=== PATIENT | female | born 1990 | race Caucasian/White ===

== ENCOUNTER 2023-06-10 01:41 | Day surgery (SDC) | payer OTHER, SELFPAY ==
[2023-06-03 17:11] VITALS: BMI 32.2
--- NOTE | 2023-06-03 17:22 | PC.NURSE ---
Report to the Outpatient Waiting Room, entrance under the green pavilion located off [facility], at time 08:00am on date 06-10-23. Planned Procedure Time: 10:00am. Time changes happen often and if your time is changed the preop area will call you the afternoon before. - You and your visitor will be asked to self-screen and do not enter if you have any COVID symptoms. - A mask is optional within the hospital at this time. Patients may have clear liquids (water, carbonated beverages, clear teas, apple juice) until 3 hours prior to surgery (7:00am) with a maximum of 20 ounces. - No food from midnight until time of surgery Take the following medications with a SIP of water the morning of surgery: buspirone, sertraline, trazodone DO NOT STOP ANY OF YOUR OTHER PRESCRIPTION MEDICATIONS PRIOR TO SURGERY ?EXCEPT THE FOLLOWING Medications to discontinue per physician: n/a Please no make-up, nail danish, hairspray, perfume, deodorant, or body powder the day of surgery. No jewelry (including any body piercings) or valuables the day of surgery, leave them at home. Please take a shower or bath the night before, or the morning of, surgery with an antibacterial soap. Wear comfortable, loose fitting clothing. - Jewelry must be removed prior to entering the operating room. Rings and piercings that are not removed may be cut off. - The hospital will not accept responsibility for valuables. - Please leave all valuables, including medications, at home the day of surgery. If you are going home after surgery, a licensed courtesy bus driver must drive you home. - NO public transportation without another adult if you receive anesthesia. - We recommend that an adult stay with you for 24 hours following discharge. - We also recommend that you do not drive, make important decision, drink alcoholic beverages, or take any drugs that were not prescribed by your health care provider for at least 24 hours after your discharge time. Follow any additional instructions given to you from your surgeon. If you or anyone in your household have experienced Covid symptoms in the past week, please notify your surgeon or the nurse liaison at the phone number below for possible testing. Telephone instructions given to PATIENT and asked if any additional questions and then verbalized understanding. Patient advised to call surgeon office or pre surgery nurse liaison [phone] if any additional questions.
--- NOTE | 2023-06-09 08:14 | P.PNAN_ITS ---
Anes - Initial Pre Proc Eval Procedure: Operation Date: 06/10/23 11:30 Proposed Procedures p Diagnostic Laparoscopy with Bilateral Salpingectomy - Beverly Cleary DO Date/Time: 06/09/23 08:14 Surgeon: Beverly Cleary DO Pre Op Diagnosis: desired surgical sterility Patient Data Age: 32 Gender: F Height: 1.57 m Weight: 80 kg Allergies Allergy/AdvReac Type Severity Reaction Status Date / Time Sulfa (Sulfonamide Allergy Severe Swelling Verified 06/03/23 17:14 Antibiotics) codeine AdvReac Mild Nausea and Verified 06/03/23 17:14 Vomiting Home Medications Medication Instructions Recorded Confirmed Type buspirone 15 mg tablet 15 mg PO BID 06/03/23 06/03/23 History sertraline 50 mg tablet 50 mg PO DAILY 06/03/23 06/03/23 History trazodone 50 mg tablet 50 mg PO DAILY 06/03/23 06/03/23 History Patient hx anesthesia problems: none Family hx anesthesia problems: none Results Review: All pre-operative results and documents have been reviewed as part of the pre- operative evaluation. [facility] Past Medical History Medical History (Updated 06/10/23 @ 11:01 by Bret Ellis DO) Anxiety Asthma Focal nodular hyperplasia of liver Surgical History Surgical History (Updated 06/10/23 @ 11:01 by Bret Ellis DO) History of cholecystectomy Status post repair of paraesophageal diaphragmatic hernia Social History Social History Smoking status: Never smoker Second hand tobacco smoke exposure: Yes (parents/as a child) Alcohol intake: never Substance use: current Substance use type: other Other substance usage details: CBD gummies Last use: 04-28-23 Living arrangements: with family Spiritual care concerns: No Anes - Eval Final PreProcedure Day of Procedure 06/09/23 08:14 Patient weight: obese Heart: regular rate and rhythm Lungs: clear to auscultation Airway: Mallampati scale class II Neurological: alert and oriented Last oral intake: >/= 8 hours ASA classification: III Emergent: no Anesthetic plan: proceed Anesthesia type and monitoring: general ETT and standard monitoring Results Review: All pre-operative results and documents have been reviewed as part of the pre- operative evaluation. Informed Consent: The patient's anesthetic plan and its attendant risks and benefits were discussed with the patient/family/POA. Questions were solicited and answers provided to the satisfaction of the patient/family/POA.
[2023-06-10] VITALS (9 sets, daily range): BP systolic 96–127; BP diastolic 67–87; PULSE 64–85; RESP 12–18; TEMP 36.9–37.4; O2SAT 95–100
--- NOTE | 2023-06-10 10:08 | WPDHPUPDATE1 ---
History and Physical Update Update Date/Time: 06/10/23 10:08 History and Physical has been reviewed, including an updated exam of the patient. There are NO changes in the patient's condition. Risks, benefits, and alternatives have been discussed and questions answered. Patient agrees to proceed with procedure.
--- NOTE | 2023-06-10 10:08 | PM.IMHP ---
H&P: HPI History of Present Illness Date/Time: 06/10/23 10:08 Chief Complaint: I'm here to get my tubes removed Narrative: Patient here desiring permanent sterilization. Review of Systems Review of Systems: All systems reviewed & are unremarkable except as noted in HPI and below PMFSH Past Medical History Medical History (Updated 06/10/23 @ 10:11 by Beverly Cleary DO) Anxiety Asthma Surgical History Surgical History (Updated 06/09/23 @ 08:15 by Bret Ellis DO) History of cholecystectomy Social History Social History Smoking status: Never smoker Second hand tobacco smoke exposure: Yes (parents/as a child) Alcohol intake: never Substance use: current Substance use type: other Other substance usage details: CBD gummies Last use: 04-28-23 Living arrangements: with family Spiritual care concerns: No Meds Home Medications and Allergies Home Medications Medication Instructions Recorded Confirmed Type buspirone 15 mg tablet 15 mg PO BID 06/03/23 06/03/23 History sertraline 50 mg tablet 50 mg PO DAILY 06/03/23 06/03/23 History trazodone 50 mg tablet 50 mg PO DAILY 06/03/23 06/03/23 History Allergies Allergy/AdvReac Type Severity Reaction Status Date / Time Sulfa (Sulfonamide Allergy Severe Swelling Verified 06/03/23 17:14 Antibiotics) codeine AdvReac Mild Nausea and Verified 06/03/23 17:14 Vomiting Exam Const: General: comfortable and no acute distress Eyes: General: appearance normal, both eyes and all related structures Resp: Effort & Inspection: normal respiratory effort Auscultation: clear to auscultation bilaterally Cardio: Rate: regular rate Rhythm: regular rhythm GI: GI Palp: Yes Soft to palpation Auscultation: normal bowel sounds Skin: General skin exam: normal color and no rashes or lesions noted Wounds: no wounds Psych: Mental Status: mental status grossly normal Affect: normal affect Assessment and Plan Assessment and plan (1) Sterilization: Code(s): Z30.2 - Encounter for sterilization Status: Acute Plan Diagnostic laparoscopy, bilateral salpingectomy Quality VTE Prophylaxis VTE prophylaxis: mechanical ordered
[2023-06-10] MEDS: ACETAMINOPHEN 500 MG TABLET 1000 MG PO (11:00)
[2023-06-10] MEDS: GABAPENTIN 300 MG CAPSULE PO (11:00)
[2023-06-10] MEDS: LACTATED RINGERS 1,000 ML 30 ML IV CONT ×2 (11:17→12:50)
[2023-06-10] MEDS: BUPIVACAINE/EPINEPHRINE 0.25% 10 ML VIAL INFILTRATE (12:14)
--- NOTE | 2023-06-10 12:22 | P.OP_ITS ---
Procedure Note - Detailed Date of Procedure 06/10/23 Pre-op Diagnosis desired surgical sterility Post-op Diagnosis Same Procedure Performed Diagnostic laparoscopy, bilateral salpingectomy Surgeon Beverly Cleary DO [employer] Anesthesia General Indications Desires permanent sterilization Findings Normal vulva and vaginal canal. Medium sized cervix. Uterus sounded to 7.5 cm. Internally, there were some omental adhesions to the falciform ligament near her previous upper abdominal midline incision. Bowels and pelvic organs were unremarkable except for a few small, simple cysts on each ovary. Description of Procedure Patient was taken to the operating room where she was placed under general anesthesia. She was prepped and draped in the normal sterile fashion in a dorsal lithotomy position. No preoperative antibiotics were indicated. After a time-out was performed, speculum was placed in the vagina and the cervix was visualized posterior aspect of the cervix was grasped with a long Allis clamp. The uterus was sounded to 7.5 cm. The cervix was sequentially dilated up to accommodate a Kroner uterine manipulator. Once this was placed a speculum and Allis were removed, gloves were changed and attention was then turned to the abdomen. The skin below the umbilicus was grasped with 2 penetrating towel clamps. There was injected with local and a small incision was made. A Veress needle was introduced and the saline water drop test was performed. The abdomen was brought to a filling pressure of 15 mmHg with CO2 gas. The Veress needle was then replaced with a 5 mm trocar which was inserted under direct visualization. Survey of the abdomen revealed no evidence of bowel or vascular injury upon entry. The patient was then placed in steep Trendelenburg position. Additional port sites in the right and left lower quadrants were identified, injected and incised. 5 mm trocars were inserted under direct visualization. The survey of the pelvis was as mentioned above. The right tube was cauterized and transected off. Specimen was passed off through the senior sales assistant port. The procedure was repeated in an identical fashion on the left-hand side. Reinspection of the pedicles revealed good hemostasis. The instruments and trocars were removed and the CO2 gas was allowed to escape. The abdominal incisions were closed with 4-0 Monocryl in a subcuticular fashion and covered with skin glue. The uterine manipulator was removed. Patient was taken to recovery room in stable condition. All instrument sponge counts were correct at the conclusion of the procedure. Estimated Blood Loss 5 IV Fluids 1,000 Drains No Packing No Pathology Yes Complications No immediate complications Condition Stable Disposition PACU
[2023-06-10] MEDS: fentaNYL CITRATE INJ (*CRX) 100 MCG/2 ML VIAL 25 MCG IV PUSH ×4 (12:40→13:10)
[2023-06-10] MEDS: oxyCODONE HCL (*CRX) 5 MG TAB IR PO (14:05)
== END 2023-06-10 14:36 | disposition home or self-care (01) ==
PROVIDERS: Visit Provider Obstetrics & Gynecology Gynecologic Oncology
PROC: (CPT 49320; principal; 2023-06-10 11:30)
DX: Z30.2 Encounter for sterilization (principal); F41.9 Anxiety disorder, unspecified; E66.9 Obesity, unspecified; Z68.32 Body mass index [BMI] 32.0-32.9, adult
CPT/HCPCS: 58661; 88302; A9270; J1100; J2250; J2405; J2704; J2710; J3010; J7120